=== PATIENT | female | born 1995 ===

== ENCOUNTER → 2021-06-02 | Day surgery (SDC) | payer OTHER ==
[~2021-06-02] MED LIST: FAMO40TA4 PO; GLYCOPYRROLATE 1 MG/5 ML VIAL. ONE; IPRATRPIUM/ALBUTEROL 0.5/2.5MG 3 ML NEBU. NEB PRN; IV RINGERS SOLUTION,LACTATED 1,000 ML IV SCH; LIDOCAINE 2% PF 5 ML VIAL. ONE; MIDAZOLAM HCL PF 2 MG/2 ML VIAL. IV ONE; ONDANSETRON PF 4 MG/2 ML VIAL. IV PRN; ONDANSETRON PF 4 MG/2 ML VIAL. ONE; PROPOFOL 10,000 MCG/ML (20ML) VIAL IV ONE
[2021-06-02 11:51] LABS: PREG TEST PT QUAL NEGATIVE (NEG)
[2021-06-02 13:45] VITALS: BP 103/69
== END | disposition home or self-care (01) ==
LOC: EDBD 10:27 → SURG 10:27
PROVIDERS: ATTEND Internal Medicine Gastroenterology
DX: R19.4 Change in bowel habit (principal); K64.8 Other hemorrhoids; R13.10 Dysphagia, unspecified; K29.60 Other gastritis without bleeding; K31.89 Other diseases of stomach and duodenum; K63.89 Other specified diseases of intestine; R12 Heartburn; K21.9 Gastro-esophageal reflux disease without esophagitis; Z80.0 Family history of malignant neoplasm of digestive organs; Z79.899 Other long term (current) drug therapy; Z98.890 Other specified postprocedural states
CPT/HCPCS: 43235; 43450; 45378; 84703; 88305; 88342; J2001; J2405; J2704; J3490; J7120; 43202; 43239; 43249